=== PATIENT | male | born 1985 | race Caucasian/White ===

== ENCOUNTER 2024-10-17 17:27 | Emergency (ER) | payer BC ==
[2024-10-17 17:39] VITALS: BP 127/75; PULSE 82; RESP 20; TEMP 98; BMI 27.3
[2024-10-17] MEDS ORDERED: AMOX TR/POT CLAV 875MG/125MG TABLETS (FP) ONE (18:36)
[2024-10-17] MEDS ORDERED: AMOX TR/POT CLAV 875MG/125MG TABLETS (FP) PO ONE (18:37)
== END 2024-10-17 18:41 | disposition home or self-care (01) ==
LOC: JER 17:27 → JERFT 17:27
PROC: 3E013BZ Introduction of Anesthetic Agent into Subcutaneous Tissue, Percutaneous Approach (ICD-10-PCS; principal; 2024-10-17)
DX: S60.111A Contusion of right thumb with damage to nail, initial encounter (principal); W23.0XXA Caught, crushed, jammed, or pinched between moving objects, initial encounter
CPT/HCPCS: 73130-TC-RT-FY; 99283-25